=== PATIENT | female | born 1960 | race American Indian/Alaskan Native ===

== ENCOUNTER 2017-12-10 12:52 | Emergency (ER) | payer MEDICAID, OTHER ==
[2017-12-10 13:16] VITALS: BMI 19.8
--- NOTE | 2017-12-10 15:46 | C.PDOC ---
History Of Present Illness 56 y/o female presents to the ER complaining of left ankle pain which has been present for the past 2 days. Patient notes pain was exacerbated while taking care of her grandson. Patient denies having any trauma and injuries. No change in sensation. No h/o gout. DEnies leg swelling, fever, or sob. Time Seen by Provider: 12/10/17 15:02 Chief Complaint (Nursing): Lower Extremity Problem/Injury History Per: Patient History/Exam Limitations: no limitations Onset/Duration Of Symptoms: Days Current Symptoms Are (Timing): Still Present Severity: Moderate Past Medical History Reviewed: Historical Data, Nursing Documentation, Vital Signs Vital Signs: Last Vital Signs Temp 98.7 F 12/10/17 13:16 Pulse 78 12/10/17 13:16 Resp 16 12/10/17 13:16 BP 162/90 H 12/10/17 13:16 Pulse Ox 100 12/10/17 16:09 - Medical History PMH: HTN Surgical History: No Surg Hx Family History: States: No Known Family Hx - Social History Hx Alcohol Use: Yes Hx Substance Use: No - Immunization History Hx Tetanus Toxoid Vaccination: No Hx Influenza Vaccination: No Hx Pneumococcal Vaccination: No Review Of Systems Except As Marked, All Systems Reviewed And Found Negative. Musculoskeletal: Positive for: Other (left ankle pain) Neurological: Negative for: Weakness, Numbness Physical Exam - Physical Exam Appears: Non-toxic, No Acute Distress Skin: Normal Color, Warm Head: Atraumatic, Normacephalic Eye(s): bilateral: Normal Inspection, EOMI Nose: Normal Oral Mucosa: Moist Neck: Normal ROM, Supple Chest: Symmetrical Respiratory: No Accessory Muscle Use Extremity: Normal ROM, Tenderness (tenderness in the posterior left ankle, no plantar tenderness), No Calf Tenderness, No Deformity, No Swelling, Other ( negative Isbell's sign) Extremity: Bilateral: Normal Color And Temperature Pulses: Left Dorsalis Pedis: Normal, Right Dorsalis Pedis: Normal Neurological/Psych: Oriented x3, Normal Speech, Normal Cognition, Normal Motor, Normal Sensation ED Course And Treatment O2 Sat by Pulse Oximetry: 100 (RA) Pulse Ox Interpretation: Normal - Other Rad ankle xr X-Ray: Interpreted by Me, Viewed By Me Interpretation: no fx or dislocation Progress Note: Pt refused pain medication. Patient has been given Aircast and crutches by marine electronics technician. Patient has been instructed to follow up with orthopedics in 1-2 days and RICE. Disposition - Disposition Referrals: Suman Lizama MD [Staff Provider] - Disposition: HOME/ ROUTINE Disposition Time: 15:43 Condition: STABLE Additional Instructions: Rest, ice and elevate the area. Follow up with ortho in 1-2 days. Return to ER if symptoms persist or worsen. Instructions: Ankle Sprain (ED) Forms: Access Point (Danish) - Clinical Impression Clinical Impression: Ankle sprain - PA / [employer] / Resident Statement MD/DO has reviewed & agrees with the documentation as recorded. - Scribe Statement The provider has reviewed the documentation as recorded by the Charly Lovett Provider Attestation All medical record entries made by the Alvarezibe were at my direction and personally dictated by me. I have reviewed the chart and agree that the record accurately reflects my personal performance of the history, physical exam, medical decision making, and the department course for this patient. I have also personally directed, reviewed, and agree with the discharge instructions and disposition.
--- NOTE | 2017-12-10 16:29 | RAD ---
Left ankle three views History: Ankle pain. Comparison: None available. Findings: Lateral malleolar soft tissue swelling. No evidence for acute displaced fracture or dislocation. Ankle mortise is maintained. Talar dome is intact. Plantar calcaneal spurring. Impression : Lateral malleolar soft tissue swelling. No evidence for acute displaced fracture or dislocation. Ankle mortise is maintained. Talar dome is intact. Plantar calcaneal spurring. If pain persists, consider MRI.
[2017-12-10 16:30] VITALS: BP 178/94; PULSE 72; RESP 20; TEMP 98.8; O2SAT 99
== END 2017-12-10 16:41 | disposition home or self-care (01) ==
LOC: C.ER 12:52
DX: S93.402A Sprain of unspecified ligament of left ankle, initial encounter (principal); X58.XXXA Exposure to other specified factors, initial encounter; I10 Essential (primary) hypertension